=== PATIENT | female | born 1985 | race Two or more races ===

== ENCOUNTER 2023-03-31 18:45 | Emergency (ER) | payer OTHER ==
[~2023-03-31] VITALS: Ht 157.5 cm; Wt 68.9 kg
[2023-03-31 20:43] LABS: HEMATOCRIT 36.5 % (36.0-45.00); HEMOGLOBIN 12.3 g/dL (12.0-15.00); MEAN CELL VOLUME 83.2 fL (80.00-100.00); MEAN CORPUSCULAR HEMOGLOBIN 28.2 pg (27.00-32.0); MEAN CORPUSCULAR HGB CONC 33.8 g/dl (32.0-36.0); PLATELET COUNT 251 K/uL (150-450); RED BLOOD COUNT 4.38 M/uL (4.00-6.00); RED CELL DISTRIBUTION WIDTH 13.4 % (11.5-14.5)
[2023-03-31] MEDS ORDERED: MUCINEX DM ER1 EACH PO (21:46)
[2023-03-31] MEDS ORDERED: SINGULAIR10 MG PO (21:46)
[2023-03-31] MEDS ORDERED: ZYRTEC10 MG PO (21:46)
== END 2023-03-31 21:59 | disposition home or self-care (01) ==
LOC: ER 18:46
PROVIDERS: General Practice
DX: J06.9 Acute upper respiratory infection, unspecified (principal); Z20.822 Contact with and (suspected) exposure to COVID-19; Z88.0 Allergy status to penicillin

== ENCOUNTER 2023-11-21 11:30 | Emergency (ER) | payer OTHER ==
[~2023-11-21] VITALS: Ht 157.5 cm; Wt 68.0 kg
[~2023-11-21 11:30] MED LIST: MUCINEX DM ER1 EACH PO; SINGULAIR10 MG PO; ZYRTEC10 MG PO
[2023-11-21] MEDS ORDERED: 0.9 % SODIUM CHLORIDE 1,000 ML IV ONE (12:15)
[2023-11-21] MEDS ORDERED: FAMOtidine 10 MG/ML (4ML VIAL) IV ONE (12:15)
[2023-11-21] MEDS ORDERED: ONDANSETRON HCL 2 MG/ML VIAL IV ONE (12:15)
[2023-11-21] MEDS ORDERED: ONDANSETRON HCL 2 MG/ML VIAL ONE (12:29)
[2023-11-21] MEDS ORDERED: FAMOTIDINE/PF 20 MG/2 ML VIAL ONE (12:30)
[2023-11-21 12:35] LABS: HEMATOCRIT 39.8 % (36.0-45.00); HEMOGLOBIN 13.4 g/dL (12.0-15.00); MEAN CELL VOLUME 84.9 fL (80.00-100.00); MEAN CORPUSCULAR HEMOGLOBIN 28.6 pg (27.00-32.0); MEAN CORPUSCULAR HGB CONC 33.7 g/dl (32.0-36.0); PLATELET COUNT 258 K/uL (150-450); RED BLOOD COUNT 4.69 M/uL (4.00-6.00); RED CELL DISTRIBUTION WIDTH 13.4 % (11.5-14.5)
[2023-11-21 13:08] LABS: HCG QUANTITATIVE < 1 mUI/mL (1-3)
[2023-11-21 13:11] LABS: ALKALINE PHOSPHATASE 70 U/L (50-136); ALT/SGPT 27 U/L (12-78); AMYLASE 57 U/L (25-115); ANION GAP 10 (10.0-20.0); AST/SGOT 17 U/L (15-37); BLOOD UREA NITROGEN 9 mg/dL (7-18); BUN CREA RATIO 14 (7.0-25.0); CALCIUM 9.4 mg/dL (8.5-10.1); CARBON DIOXIDE 29 mEq/L (21-32); CHLORIDE 106 mmol/L (98-107); CREATININE SERUM 0.66 mg/dL (0.55-1.02); GFR 100.23; GLOBULINA 4.1 G/DL (2.4-3.5); GLUCOSE FASTING 87 mg/dL (65-100); LIPASE 28 U/L (13-75); OSMOLALITY SERUM 279 MOSM/KG (275-295); POTASSIUM 3.55 mEq/L (3.5-5.1); SODIUM 141 mmol/L (136-145); TOTAL PROTEIN 8.1 gm/dL (6.4-8.2)
[2023-11-21 13:32] LABS: PH,URINE 6.5 (5.0-8.0); URINE APPEARANCE Clear; URINE BILIRRUBIN Negative (NEGATIVE); URINE BLOOD Negative; URINE COLOR Yellow; URINE GLUCOSE Negative (NEGATIVE); URINE KETONE Negative (NEGATIVE); URINE LEUKOCYTE Negative; URINE NITRATE Negative; URINE PROTEIN Negative (NEGATIVE); URINE UROBILINOGEN 0.2 E.U./dl
[2023-11-21 13:36] LABS: URINE BACTERIA 62.9 uL (0.0-1933); URINE EPITHELIAL CELLS 14.4 uL (0.0-38.8); URINE RBC 22.9 uL (0.0-20.8)
[2023-11-21 13:39] LABS: URINE WBC 1.3 uL (0.0-23.2)
[2023-11-21] MEDS ORDERED: PEPCID AC20 MG PO (14:33)
[2023-11-21] MEDS ORDERED: ZOFRAN8 MG PO (14:33)
== END 2023-11-21 14:39 | disposition home or self-care (01) ==
LOC: ER 11:32
PROVIDERS: General Practice
DX: K52.9 Noninfective gastroenteritis and colitis, unspecified (principal); R10.9 Unspecified abdominal pain; Z88.0 Allergy status to penicillin